=== PATIENT | male | born 1960 | race Caucasian/White ===

== ENCOUNTER → 2021-05-09 12:12 | Outpatient (CLI) | payer BC, SELFPAY | PROVIDERS: PCP Family Medicine; Visit Provider Nurse Practitioner | DX: Z20.822 Contact with and (suspected) exposure to COVID-19 (principal) | CPT/HCPCS: C9803; U0003; U0005 ==

== ENCOUNTER 2022-06-10 18:04 | Emergency (ER) | payer BC, SELFPAY ==
[2022-06-10 18:50] VITALS: BP 166/93; PULSE 68; RESP 16; TEMP 36.5; O2SAT 96; BMI 34.9
--- NOTE | 2022-06-10 18:53 | ECG_ITS ---
APPROVED REPORT Exam: Resting ECG HR:65 bpm ECG Measurements Heart Rate 65 AXES AR 186 P -4 QRSd 117 QRS 24 QT 430 T 14 QTc 442 Conclusion SINUS RHYTHM WITH FREQUENT VENTRICULAR PREMATURE COMPLEXES MODERATE INTRAVENTRICULAR CONDUCTION DELAY [110+ ms QRS DURATION] ABNORMAL RHYTHM ECG UNCONFIRMED REPORT Electronically signed by : Jeremi Noyola MD 06/11/2022 08:01:19
--- NOTE | 2022-06-10 18:55 | XR_ITS ---
PROCEDURE INFORMATION: Exam: XR Chest Exam date and time: 06/10/2022 7:27 PM Age: 62 years old Clinical indication: Sternal or substernal pain; Additional info: HTN w/ pain to shoulder blade TECHNIQUE: Imaging protocol: Radiologic exam of the chest. Views: 2 views. COMPARISON: No relevant prior studies available. FINDINGS: Lungs: Normal pulmonary expansion. Pulmonary vasculature grossly normal. No gross pulmonary infiltrates or edema pattern. Pleural spaces: No pleural effusion. No pneumothorax. Heart/Mediastinum: Heart size normal. No tracheal/mediastinal shift. Vasculature: Mild aortic ectasia/tortuosity. Bones/joints: No acute osseous abnormalities are identified. IMPRESSION: No acute thoracic process.
--- NOTE | 2022-06-10 19:09 | HMH.EDGENADL ---
Discharge Plan Disposition Patient Disposition: Home, Self-Care Referrals Follow up/Referrals: Sigifredo Salvador MD [Primary Care Provider] - See instructions Clinical Impressions Clinical Impression: Cervical radicular pain, Hypertension Instructions Patient Instructions: DI for Cervical Radiculopathy Discharge ED Provider: Anabel (ED),Fabio Brooks General Adult HPI General Chief complaint: PAIN Stated complaint: Pain in L arm bp high Time Seen by Provider: 06/10/22 23:40 Mode of Arrival: Ambulatory Source of Information: Patient Limitations: No Limitations Description of Symptoms (Recalled from ER Triage Doc. by RN): Pt reports a week or 2 of high BP readings at home and today developed a sharp pain in his left arm that radiated into his shoulder. Pain is not reproduced on palpation. Pt denies SOA, PIMENTEL, chest pain, N/V, diaphoresis, dizziness, or weakness. History of Present Illness HPI narrative: I did not see this patient Related Data Allergies Allergy/AdvReac Type Severity Reaction Status Date / Time No Known Allergies Allergy Verified 06/10/22 18:55 [facility] Disclaimer: The information contained in this section may have been updated after the patient was seen, as this information can be updated by other users. Social History (Updated 06/11/22 @ 06:23 by Fabio Little (ED)MD) Smoking Status: Never smoker alcohol intake: never current occupational status: employed Travel in the last 8 weeks: None ROS Obtained: Yes other Physical Exam General General appearance: alert Comment: I did not see this patient Respiratory Respiratory exam: Present other Cardiovascular Cardiovascular exam: Present other Neurological Exam Neurological exam: Present other Medical Decision Making Heraclio Inquiry Pt receiving controlled substance: No Vital Signs: 06/10/22 18:50 06/10/22 21:00 06/10/22 21:31 Temperature 97.7 F Temperature Source Oral Pulse Rate 48 L 73 Pulse Rate [Right Radial] 68 Respiratory Rate 16 Blood Pressure 150/87 H 148/94 H Blood Pressure [Right Arm] 166/93 H Blood Pressure Mean [Right Arm] 117 Blood Pressure Source [Right Arm] Automatic Cuff Blood Pressure Position [Right Arm] Sitting 02 Sat by Pulse Oximetry 96 99 95 Oxygen Delivery Method Room Air Room Air Room Air 06/10/22 22:01 06/10/22 22:31 06/10/22 23:01 Temperature Temperature Source Pulse Rate 68 45 L 60 Pulse Rate [Right Radial] Respiratory Rate Blood Pressure 145/88 H 154/79 H 146/85 H Blood Pressure [Right Arm] Blood Pressure Mean [Right Arm] Blood Pressure Source [Right Arm] Blood Pressure Position [Right Arm] 02 Sat by Pulse Oximetry 96 98 95 Oxygen Delivery Method Room Air Room Air Room Air 06/11/22 00:43 06/11/22 00:43 Temperature 97.9 F Temperature Source Pulse Rate 61 Pulse Rate [Right Radial] Respiratory Rate 18 Blood Pressure 154/73 H Blood Pressure [Right Arm] Blood Pressure Mean [Right Arm] Blood Pressure Source [Right Arm] Blood Pressure Position [Right Arm] 02 Sat by Pulse Oximetry Oxygen Delivery Method Room Air Room Air Lab Data Lab Results 06/10/22 19:29: WBC 7.6, RBC 5.16, Hgb 15.2, Hct 46.1, MCV 89.4, MCH 29.4, MCHC 32.9, RDW 14.3, Plt Count 239, MPV 8.0, Neut % (Auto) 61.7, Lymph % (Auto) 24.1, [place] % (Auto) 7.7, Eos % (Auto) 5.5, Baso % (Auto) 1.0, Neut # (Auto) 4.7, Lymph # (Auto) 1.8, [place] # (Auto) 0.6, Eos # (Auto) 0.4, Baso # (Auto) 0.1 06/10/22 19:29: Sodium 140, Potassium 3.7, Chloride 103, Carbon Dioxide 31 H, Anion Gap 9.7, BUN 20, Creatinine 0.80, Estimated Creat Clear 130, Estimated GFR 98, Est GFR ( Amer) 119, Glucose 107 H, Calcium 8.7, Troponin I < 0.01 06/10/22 22:25: Troponin I < 0.01 Result diagrams: 06/10/22 19:29 06/10/22 19:29 Orders (Tests/Meds): ED MEDICATIONS Discontinued Medications Generic Name Dose Route Start Last Admin Trade Na
[2022-06-10 19:49] LABS: Basophils # 0.1 K/mm3 (0-0.2); Eosinophils # 0.4 K/mm3 (0.0-0.4); Eosinophils % 5.5 % (0.1-12.0); Hematocrit 46.1 % (42.0-52.0); Hemoglobin 15.2 g/dL (14.1-18.0); Lymphocytes # 1.8 K/mm3 (0.7-4.5); Lymphocytes % 24.1 % (10-50); Mean Corpuscular HGB Conc 32.9 g/dL (31.8-35.4); Mean Corpuscular Hemoglobin 29.4 pg (27.0-31.2); Mean Corpuscular Volume 89.4 fl (80-94); Monocytes # 0.6 K/mm3 (0.1-1.0); Monocytes % 7.7 % (1.7-9.3); Neutrophils # 4.7 K/mm3 (1.8-7.8); Neutrophils % 61.7 % (37.0-80.0); Platelet Count 239 K/mm3 (142-424); Red Blood Count 5.16 M/mm3 (4.60-6.20); Red Cell Distribution Width 14.3 % (11.5-17.5); White Blood Count 7.6 K/mm3 (4.8-10.8)
[2022-06-10 19:54] LABS: Chloride 103 mmol/L (98-107); Sodium 140 mmol/L (136-145)
[2022-06-10 19:55] LABS: Potassium 3.7 mmoL/L (3.5-5.1)
[2022-06-10 19:57] LABS: Blood Urea Nitrogen 20 mg/dl (9-20); Creatinine Clearance Estimated 130 mL/min (50-200); Estimated Glomerular Filt Rate 98 ml/min (>60); GFR (African American) 119 ML/MIN (>60)
[2022-06-10 19:58] LABS: Anion Gap 9.7 mEq/L (5-15); Calcium 8.7 mg/dl (8.4-10.2); Carbon Dioxide 31 mmol/L (22.0-30.0); Glucose 107 mg/dl (74-100)
[2022-06-10 20:31] LABS: Troponin I < 0.01 ng/ml (0.00-0.034)
[2022-06-10 21:00] VITALS: BP 150/87; PULSE 48; O2SAT 99
[2022-06-10 21:31] VITALS: BP 148/94; PULSE 73; O2SAT 95
[2022-06-10 22:01] VITALS: BP 145/88; PULSE 68; O2SAT 96
--- NOTE | 2022-06-10 22:17 | PC.NURSE ---
Rounded on pt. Pt notified that we have critical cases at this time and we will be back with them as soon as possible.
[2022-06-10 22:31] VITALS: BP 154/79; PULSE 45; O2SAT 98
[2022-06-10 23:01] VITALS: BP 146/85; PULSE 60; O2SAT 95
[2022-06-10 23:16] LABS: Troponin I < 0.01 ng/ml (0.00-0.034)
--- NOTE | 2022-06-10 23:59 | HMH.EDGENADL ---
Discharge Plan Disposition Chief Complaint: PAIN Referrals Follow up/Referrals: Sigifredo Salvador MD [Primary Care Provider] - See instructions Clinical Impressions Clinical Impression: Cervical radicular pain, Hypertension Instructions Patient Instructions: DI for Cervical Radiculopathy Discharge ED Provider: Anabel (ED)Fabio General Adult HPI General Chief complaint: PAIN Stated complaint: Pain in L arm bp high Time Seen by Provider: 06/10/22 22:00 Mode of Arrival: Ambulatory Source of Information: Patient, Spouse and Medical Record Limitations: No Limitations Description of Symptoms (Recalled from ER Triage Doc. by RN): Pt reports a week or 2 of high BP readings at home and today developed a sharp pain in his left arm that radiated into his shoulder. Pain is not reproduced on palpation. Pt denies SOA, PIMENTEL, chest pain, N/V, diaphoresis, dizziness, or weakness. History of Present Illness HPI narrative: pt with neck pain with rad to upper ext over the last few days - also has elevated bp - has hx of htn and has been compliant with meds - no focal neuro sx and no fever or rash Onset (ago): day(s) Location: neck Radiation: extremity Severity: moderate Consistency: intermittent Related Data Allergies Allergy/AdvReac Type Severity Reaction Status Date / Time No Known Allergies Allergy Verified 06/10/22 18:55 [facility] Disclaimer: The information contained in this section may have been updated after the patient was seen, as this information can be updated by other users. Social History Smoking Status: Never smoker alcohol intake: never current occupational status: employed Travel in the last 8 weeks: None ROS Obtained: Yes All systems reviewed & no additional complaints except as documented Physical Exam General General appearance: alert and obese Head Head exam: normocephalic Eye Eye exam: Present PERRL and EOMI ENT ENT exam: Present mucous membranes moist Neck Neck exam: Present trachea midline and tenderness Respiratory Respiratory exam: Present normal lung sounds bilaterally; Absent respiratory distress Cardiovascular Cardiovascular exam: Present regular rate Abdominal Exam Abdominal exam: Present soft Extremities Exam Extremities exam: Present full ROM Neurological Exam Neurological exam: Present alert, oriented X3 and CN II-XII intact; Absent motor sensory deficit Psychiatric Psychiatric exam: Present normal affect Skin Skin exam: Absent rash Medical Decision Making Medical Records Medical records reviewed: Yes I reviewed the patient's medical records. Heraclio Inquiry Pt receiving controlled substance: No Vital Signs: 06/10/22 18:50 06/10/22 21:00 06/10/22 21:31 Temperature 97.7 F Temperature Source Oral Pulse Rate 48 L 73 Pulse Rate [Right Radial] 68 Respiratory Rate 16 Blood Pressure 150/87 H 148/94 H Blood Pressure [Right Arm] 166/93 H Blood Pressure Mean [Right Arm] 117 Blood Pressure Source [Right Arm] Automatic Cuff Blood Pressure Position [Right Arm] Sitting 02 Sat by Pulse Oximetry 96 99 95 Oxygen Delivery Method Room Air Room Air Room Air 06/10/22 22:01 06/10/22 22:31 06/10/22 23:01 Temperature Temperature Source Pulse Rate 68 45 L 60 Pulse Rate [Right Radial] Respiratory Rate Blood Pressure 145/88 H 154/79 H 146/85 H Blood Pressure [Right Arm] Blood Pressure Mean [Right Arm] Blood Pressure Source [Right Arm] Blood Pressure Position [Right Arm] 02 Sat by Pulse Oximetry 96 98 95 Oxygen Delivery Method Room Air Room Air Room Air 06/11/22 00:43 06/11/22 00:43 Temperature 97.9 F Temperature Source Pulse Rate 61 Pulse Rate [Right Radial] Respiratory Rate 18 Blood Pressure 154/73 H Blood Pressure [Right Arm] Blood Pressure Mean [Right Arm] Blood Pressure Source [Right Arm] Blood Pressure Position [Right Arm] 02 Sat by Pulse Oximetry Oxygen Delivery Method Room Air Room Air
--- NOTE | 2022-06-11 00:16 | PC.NURSE ---
Dr. Little at [facility] speaking with pt
[2022-06-11 00:43] VITALS: BP 154/73; PULSE 61; RESP 18; TEMP 36.6; O2SAT 98
== END 2022-06-11 00:45 | disposition home or self-care (01) ==
PROVIDERS: Emergency Provider Emergency Medicine; PCP Family Medicine
DX: M54.12 Radiculopathy, cervical region (principal); I10 Essential (primary) hypertension
CPT/HCPCS: 36415; 71046; 80048; 84484; 85025; 93005; 99285

== ENCOUNTER → 2022-07-02 16:03 | Outpatient (CLI) | payer BC, SELFPAY ==
--- NOTE | 2022-07-02 16:13 | XR_ITS ---
PROCEDURE INFORMATION: Exam: XR Cervical Spine Exam date and time: 07/02/2022 4:27 PM Age: 62 years old Clinical indication: Neck pain; Additional info: Neck disorder TECHNIQUE: Imaging protocol: Radiologic exam of the cervical spine. Views: 4 or 5 views. COMPARISON: CR XR CHEST 2V 06/10/2022 7:27 PM FINDINGS: Bones/joints: No acute fracture of the cervical spine. No subluxation or dislocation of the cervical spine. Intervertebral disc space narrowing C3/C4 may represent degenerative disc disease.. Posterior osteophyte formation C3 through C5. Degenerative changes in the facets at multiple levels. Degenerative changes at C1/C2 Neural foraminal narrowing on the right at C3/C4 Soft tissues: Unremarkable. IMPRESSION: 1. No acute fracture of the cervical spine. 2. No subluxation or dislocation of the cervical spine. 3. Intervertebral disc space narrowing C3/C4 may represent degenerative disc disease..
== END ==
LOC: RAD 16:07
PROVIDERS: PCP Family Medicine; Visit Provider Family Medicine
DX: M53.82 Other specified dorsopathies, cervical region (principal)
CPT/HCPCS: 72050

== ENCOUNTER → 2022-07-09 16:10 | Outpatient (CLI) | payer BC, SELFPAY ==
--- NOTE | 2022-07-09 16:12 | CA_ITS ---
FINAL REPORT TECHNIQUE: Color Doppler, duplex Doppler and compression sonography of the left lower extremity deep venous systems was performed. CLINICAL HISTORY: EDEMA X SEVERAL DAYS,HX DVT,HX LT KNEE REPLACEMENT LAST OCTOBER FINDINGS: There is no evidence of deep venous thrombosis from the level of the groin to the calf. The veins are patent and compressible. IMPRESSION: No evidence of deep venous thrombosis left lower extremity. Reviewed, Interpreted and Dictated by Obie France III, MD Transcribed by Sil Sumner Authenticated and [facility]
== END ==
LOC: RT 16:11
PROVIDERS: PCP Family Medicine; Visit Provider Family Medicine
DX: M79.605 Pain in left leg (principal)
CPT/HCPCS: 93971

== ENCOUNTER → 2022-11-19 16:54 | Outpatient (CLI) | payer BC, SELFPAY ==
--- NOTE | 2022-11-19 | CA_ITS ---
FINAL REPORT CLINICAL HISTORY: Left leg pain posterior calf x 2 days. Patient denies trauma. 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 History of DVT per patient. HTN. Not currently on blood thinners. COMPARISON: None FINDINGS: DUPLEX VENOUS SONOGRAPHY OF THE LEFT LOWER EXTREMITY Multiple transverse and longitudinal scans were performed of the femoropopliteal deep venous system, with augmentation and compression maneuvers. HISTORY: Pain FINDINGS: Normal phasic flow was noted in the visualized deep venous system. No intraluminal increased echogenicity is noted to suggest thrombus. There is normal compression and augmentation of the venous structures. No abnormal venous collaterals are seen. IMPRESSION: No evidence of deep venous thrombosis of the left lower extremity. Reviewed, Interpreted and Dictated by Angela Mercado MD Transcribed by Genny Razo Authenticated and [facility]
== END ==
PROVIDERS: PCP Physician Assistant; Visit Provider Physician Assistant
DX: M79.662 Pain in left lower leg (principal)
CPT/HCPCS: 93971